=== PATIENT | male | born 1970 | race Caucasian/White ===

== ENCOUNTER 2018-03-01 16:29 | Emergency (ER) | payer BC ==
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
== END 2018-03-01 18:14 | disposition home or self-care (01) ==
LOC: ERS 16:29
DX: S80.812A Abrasion, left lower leg, initial encounter (principal); R07.89 Other chest pain; M25.562 Pain in left knee; M79.601 Pain in right arm; V89.2XXA Person injured in unspecified motor-vehicle accident, traffic, initial encounter
CPT/HCPCS: 71045

== ENCOUNTER 2021-03-20 21:17 | Emergency (ER) | payer BC | END 2021-03-20 22:14 | disposition home or self-care (01) | LOC: ERS 21:17 | DX: S63.501A Unspecified sprain of right wrist, initial encounter (principal); S50.01XA Contusion of right elbow, initial encounter; I10 Essential (primary) hypertension; W13.2XXA Fall from, out of or through roof, initial encounter ==